=== PATIENT | female | born 1970 | race Caucasian/White ===

== ENCOUNTER → 2017-05-10 | Outpatient (CLI) | payer OTHER ==
--- NOTE | 2017-05-10 09:32 | DI ---
History acute ankle pain left ankle Comparison: None There is a comminuted fracture of the medial malleolus with vertical and horizontal components. There is no significant displacement of these fragments fragments. There is a comminuted oblique fracture distal metaphysis of the fibula with step off at the fracture site. There is a 2.5 x 0.9 cm posterior tibial malleolar fracture with slight displacement. The ankle mortise is widened. Impression: Trimalleolar fracture with widening of the ankle mortise
== END ==
LOC: MOB RAD 08:27
DX: M25.572 Pain in left ankle and joints of left foot (principal); S82.455A Nondisplaced comminuted fracture of shaft of left fibula, initial encounter for closed fracture; S82.52XA Displaced fracture of medial malleolus of left tibia, initial encounter for closed fracture; X50.1XXA Overexertion from prolonged static or awkward postures, initial encounter; Y93.68 Activity, volleyball (beach) (court); Y92.89 Other specified places as the place of occurrence of the external cause
CPT/HCPCS: 73610